=== PATIENT | male | born 1995 | race American Indian/Alaskan Native ===

== ENCOUNTER 2021-03-08 20:47 | Emergency (ER) | payer SELFPAY ==
[2021-03-08] MEDS ORDERED: SODIUM CHLORIDE 0.9% 1000 ML 1,000 ML IV ONE (21:02)
[2021-03-08] MEDS ORDERED: LORazepam 2 MG/ML VIAL IV ONE ×2 (21:05→21:38)
[2021-03-08 21:28] LABS: Basophils # (Auto) 0.1 K/mm3 (0.0-0.1); Basophils % (Auto) 0.7 % (0.0-1.8); Eosinophils % (Auto) 0.2 % (0.0-4.3); Hematocrit 49.9 % (35.5-45.6); Hemoglobin 16.6 gm/dl (11.8-15.2); Lymphocytes # (Auto) 1.3 K/mm3 (1.2-5.4); Lymphocytes % (Auto) 16.7 % (13.4-35.0); Mean Corpuscular HGB Conc 33 % (32-34); Mean Corpuscular Volume 95 fl (84-94); Monocytes # (Auto) 0.7 K/mm3 (0.0-0.8); Platelet Count 276 K/mm3 (140-440); Red Blood Count 5.25 M/mm3 (3.65-5.03); Red Cell Distribution Width 14.2 % (13.2-15.2)
[2021-03-08 21:43] LABS: Partial Thromboplastin Time 21.7 Sec. (24.2-36.6)
[2021-03-08 21:50] LABS: Albumin 4.8 g/dL (3.9-5); Calcium 9.7 mg/dL (8.4-10.2)
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
--- NOTE | 2021-03-08 23:21 | Cat Scan Report ---
The CT abdomen pelvis was dictated concurrently with the chest CT, please refer to separately dictate d chest CT for report. Signer Name: Harper Byrd MD Signed: 03/08/2021 11:17 PM Workstation Name: [email or web address]
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
[2021-03-09 00:14] VITALS: BP 133/88
== END 2021-03-09 01:40 | disposition other institution (70) ==
LOC: EDBD 20:47 → ED 20:47
DX: S06.5X9A Traumatic subdural hemorrhage with loss of consciousness of unspecified duration, initial encounter (principal); R07.89 Other chest pain; R10.9 Unspecified abdominal pain; V49.69XA Unspecified car occupant injured in collision with other motor vehicles in traffic accident, initial encounter; W22.10XA Striking against or struck by unspecified automobile airbag, initial encounter; Y93.89 Activity, other specified; Y92.410 Unspecified street and highway as the place of occurrence of the external cause; Y99.8 Other external cause status
CPT/HCPCS: 36415; 70450; 71260; 72125; 74177; 80053; 85025; 85610; 85730; 86850; 86900; 86901; 96361; 96374; 99285; J2060; J7030; Q9967; 80320; G0480